=== PATIENT | male | born 1985 | race African-American/Black ===

== ENCOUNTER 2017-12-10 21:52 | Emergency (ER) | payer SELFPAY ==
[~2017-12-10] VITALS: Ht 180.3 cm; Wt 100.2 kg
[2017-12-10 22:09] LABS: HEMATOCRIT 37.9 % (38.0-50.0); MCHC 36.9 G/DL (30.0-36.0); PLATELET COUNT 136 K/uL (156-360); RBC DIS.WIDTH-CV 11.9 % (11.8-14.6); RBC DIS.WIDTH-SD 36.1 % (39-53); RED BLOOD COUNT 4.51 M/uL (4.00-5.50); WHITE BLOOD COUNT 10.1 K/uL (4.1-10.2)
[2017-12-10 22:25] LABS: ALBUMIN 4.4 g/dL (3.2-4.8); CHLORIDE 98 mEq/L (99-109); POTASSIUM 3.4 mEq/L (3.7-5.4); SODIUM 136 mEq/L (136-147)
[2017-12-10 22:27] LABS: GLUCOSE 97 mg/dL (70-99); TOTAL PROTEIN 7.6 g/dL (6.4-8.3)
[2017-12-10 22:29] LABS: TOTAL BILIRUBIN 2.7 mg/dL (0.0-1.0)
[2017-12-10 22:30] LABS: SERUM ETHYL ALCOHOL < 10 mg/dL
[2017-12-10 22:31] LABS: ALKALINE PHOSPHATASE 117 IU/L (3-129)
[2017-12-10 22:32] LABS: AST (GOT) 121 IU/L (2-34); GFR ESTIMATE (CALCULATED) > 59 mL/min/ (58.99-99999)
[2017-12-10 22:33] LABS: UREA NITROGEN (BUN) 13 mg/dL (9-23)
[2017-12-10 22:34] LABS: SALICYLATE < 5.0 MG/DL (15-30)
[2017-12-10 22:35] LABS: ACETAMINOPHEN (TYLENOL) < 10 mcg/mL (10-30); ALT (GPT) 66 IU/L (3-49)
[2017-12-11 00:05] LABS: INTER. NORMALIZED RATIO 1.1
[2017-12-11 00:08] LABS: PTT 26.1 SEC (25-37)
[2017-12-11 03:06] LABS: AMPHETAMINE NEGATIVE (500 ng/mL); BARBITURATES NEGATIVE (200 ng/mL); BENZODIAZEPINES PRESUMPTIVE POSITIVE (150 ng/mL); BUPRENORPHINE NEGATIVE (10 ng/mL); COCAINE PRESUMPTIVE POSITIVE (150 ng/mL); METHADONE NEGATIVE (200 ng/mL); METHAMPHETAMINE NEGATIVE (500 ng/mL); OPIATES (MORPHINE) NEGATIVE (100 ng/mL); OXYCODONE NEGATIVE (100 ng/mL); PHENCYCLIDINE NEGATIVE (25 ng/mL); PROPOXYPHENE NEGATIVE (300 ng/mL); THC CANNABINOIDS PRESUMPTIVE POSITIVE (50 ng/mL); TRICYCLIC ANTIDEPRESSANTS NEGATIVE (300 ng/mL)
[2017-12-11 03:35] LABS: BENZODIAZEPINES, URINE SCREEN Negative (200 ng/mL)
[2017-12-11 06:18] VITALS: BP 124/74
== END 2017-12-11 06:19 | disposition home or self-care (01) ==
LOC: EME 21:52 → EDBD 21:52 → EME 12-11 06:19
PROVIDERS: Emergency Medicine
DX: F16.10 Hallucinogen abuse, uncomplicated (principal); F12.10 Cannabis abuse, uncomplicated; R41.82 Altered mental status, unspecified; R00.0 Tachycardia, unspecified; R45.1 Restlessness and agitation
CPT/HCPCS: 80053; 84999; 85027; 85610; 85730; 93005; 99281; 99285; G0480; J1630; J2060; J7030